=== PATIENT | female | born 1965 | race Caucasian/White ===

== ENCOUNTER 2017-05-25 08:30 | Emergency (ER) | payer OTHER ==
[~2017-05-25] VITALS: Ht 152.4 cm; Wt 70.0 kg
[2017-05-25 08:35] VITALS: BP 173/80; PULSE 87; RESP 16; TEMP 97.8; O2SAT 98
[2017-05-25] MEDS ORDERED: IBUP1TAB7 PO (09:25)
[2017-05-25] MEDS ORDERED: PENI500T PO (09:25)
--- NOTE | 2017-05-25 09:25 | PD ---
HPI Chief Complaint: Facial Pain or Swelling Time Seen by Provider: 09:15 Travel History International Travel<30 days: No Contact w/Intl Traveler<30days: No Traveled to known affect area: No History of Present Illness HPI 52-year-old female here with left upper dental pain for 1 day. Denies fever or chills. Reports a cracked tooth at the site of the pain. No difficulty swelling. Severity moderate. Aggravated by eating and drinking. No alleviating factors. PFSH Past Medical History Medical History: Denies Significant Hx Tetanus Vaccination: < 5 Years Influenza Vaccination: No ?: Not Menopausal: Yes Ovarian Cysts: Yes Past Surgical History Appendectomy: Yes Hysterectomy: Yes (one ovary removed) Social History Alcohol Use: Yes (occas. mix drinks) Tobacco Use: Yes (1 pack every 2 days) Substance Use: No Allergies-Medications (Allergen,Severity, Reaction): Coded Allergies: codeine (Verified Allergy, Intermediate, vomitimg, 05/25/17) Reported Meds & Prescriptions Reported Meds & Active Scripts Active No Active Prescriptions or Reported Medications Review of Systems Except as stated in HPI: all other systems reviewed are Neg General / Constitutional: No: Fever Physical Exam Narrative GENERAL: Alert well-appearing female. SKIN: Warm and dry. HEAD: Normocephalic. EYES: No injection or drainage. MOUTH: Pain and tenderness to the left upper premolar region. Mild gum erythema. Widespread dental decay. No trismus. NECK: Supple, trachea midline. No JVD or lymphadenopathy. MUSCULOSKELETAL: No cyanosis, or edema. BACK: Nontender without obvious deformity. No CVA tenderness. Data Data Last Documented VS Vital Signs Date Time Temp Pulse Resp B/P (MAP) Pulse Ox O2 Delivery O2 Flow Rate FiO2 05/25/17 08:42 87 16 05/25/17 08:35 97.8 173/80 (111) 98 MDM Medical Decision Making Medical Screen Exam Complete: Yes Emergency Medical Condition: Yes Differential Diagnosis Dental infection, dental abscess, dental caries. Narrative Course 52-year-old female here with dental pain. She is well-appearing. Vital signs are stable. Diagnosis Primary Impression: Dentalgia Referrals: Dentist Scripts Ibuprofen (Ibuprofen) 800 Mg Tab 800 MG PO Q6HR Y for PAIN, #30 TAB 0 Refills Prov: Nataliia Cook [employer] 05/25/17 Penicillin V Potassium (Penicillin V Potassium) 500 Mg Tab 500 MG PO Q6H for Infection for 7 Days, #28 TAB 0 Refills Prov: Nataliia Cook 05/25/17 Disposition: 01 DISCHARGE HOME Condition: Stable Nataliia Cook May 25, 2017 09:25
[2017-05-26] MEDS ORDERED: HYDR-3516 PO (19:06)
[2017-05-26] MEDS ORDERED: FAMO1TAB73 PO (19:06)
== END 2017-05-25 09:38 | disposition home or self-care (01) ==
LOC: PHEFT 08:30
DX: K08.89 Other specified disorders of teeth and supporting structures (principal); F17.200 Nicotine dependence, unspecified, uncomplicated; Z88.5 Allergy status to narcotic agent
CPT/HCPCS: 99283

== ENCOUNTER 2017-05-26 17:05 | Emergency (ER) | payer OTHER ==
[~2017-05-26] VITALS: Ht 152.4 cm; Wt 67.8 kg
[~2017-05-26 17:05] MED LIST: IBUP1TAB7 PO; PENI500T PO
[2017-05-26 17:09] VITALS: BP 207/88; PULSE 92; RESP 16; TEMP 99; O2SAT 97
--- NOTE | 2017-05-26 17:23 | PD ---
HPI Chief Complaint: Oral / Dental Pain or Problem Time Seen by Provider: 17:16 Travel History International Travel<30 days: No Contact w/Intl Traveler<30days: No Traveled to known affect area: No History of Present Illness HPI 52-year-old female here for evaluation of dental pain and fever. The patient was seen in the emergency department yesterday and was found to have poor dentition with likely dental infection and was started on Pen-Vee K. She states today her pain and swelling has increased. She is able to swallow and tolerate his secretions. She has noted feeling feverish today. She has been taking ibuprofen, last dose was 2 hours ago. Pain is described as throbbing, 10 out of 10, constant, worse with movement and palpation. Patient also complains of indigestion type feeling in her chest. Discomfort is substernal and she describes as reflux sensation. She smokes cigarettes. She denies history of hypertension or diabetes. No known history of cardiac disease. Sensation is mild to moderate in intensity, intermittent, no modifying factors. PFSH Past Medical History ?: Not Menopausal: Yes Ovarian Cysts: Yes Past Surgical History Appendectomy: Yes Hysterectomy: Yes (one ovary removed) Social History Alcohol Use: Yes (occas. mix drinks) Tobacco Use: Yes (1 pack every 2 days) Substance Use: No Allergies-Medications (Allergen,Severity, Reaction): Coded Allergies: codeine (Verified Allergy, Intermediate, vomitimg, 05/26/17) Reported Meds & Prescriptions Reported Meds & Active Scripts Active Ibuprofen 800 Mg Tab 800 Mg PO Q6HR PRN Penicillin V Potassium 500 Mg Tab 500 Mg PO Q6H 7 Days Review of Systems Except as stated in HPI: all other systems reviewed are Neg Physical Exam Narrative GENERAL: Well-developed, well-nourished, comfortable, no apparent distress. SKIN: Focused skin assessment warm/dry. HEAD: Moderate left cheek swelling without fluctuance or induration. Normocephalic. EYES: Pupils equal and round. No scleral icterus. No injection or drainage. ENT: Mucous membranes pink and moist. Poor dentition with several dental caries with tenderness to the left upper molars, several missing teeth. No trismus. No drooling or stridor. Normal phonation. NECK: Trachea midline. No JVD. No sublingual, submental, submandibular, or neck swelling, induration, or fluctuance. CARDIOVASCULAR: Regular rate and rhythm. RESPIRATORY: No accessory muscle use. Clear to auscultation. Breath sounds equal bilaterally. GASTROINTESTINAL: Abdomen soft, non-tender, nondistended. MUSCULOSKELETAL: No obvious deformities. No clubbing. No cyanosis. No edema. NEUROLOGICAL: Awake and alert. No obvious cranial nerve deficits. Motor grossly within normal limits. Normal speech. PSYCHIATRIC: Appropriate mood and affect; insight and judgment normal. Data Data Last Documented VS Vital Signs Date Time Temp Pulse Resp B/P (MAP) Pulse Ox O2 Delivery O2 Flow Rate FiO2 05/26/17 18:41 72 16 144/89 (107) 98 Room Air 05/26/17 17:09 99.0 Orders Orders Electrocardiogram (05/26/17 17:20) Basic Metabolic Panel (Bmp) (05/26/17 17:20) Ckmb (Isoenzyme) Profile (05/26/17 17:20) Complete Blood Count With Diff (05/26/17 17:20) Prothrombin Time / Inr (Pt) (05/26/17 17:20) Act Partial Throm Time (Ptt) (05/26/17 17:20) Troponin I (05/26/17 17:20) Chest, Single Ap (05/26/17 17:20) Ecg Monitoring (05/26/17 17:20) Iv Access Insert/Monitor (05/26/17 17:20) Oximetry (05/26/17 17:20) Aspirin Chew (Aspirin Chew) (05/26/17 17:30) Sodium Chloride 0.9% Flush (Ns Flush) (05/26/17 17:30) Acetaminophen (Tylenol) (05/26/17 17:30) Lidocaine 1% Inj (50 Ml) (Xylocaine 1% I (05/26/17 17:30) Famotidine Inj (Pepcid Inj) (05/26/17 17:30) Al-Mag Hy-Si 40-40-4 Mg/Ml Liq (Mag-Al P (05/26/17 18:45) Lidocaine 2% Viscous (Xylocaine 2% Visco (05/26/17 18:45) Hepatic Functional Panel (05/26/17 17:40) Lipase (05/26/17 17:40) Labs Laboratory Tests Test 05/26/17 17:40 White Blood Count 10.3 TH/MM3 Red Blood Count 4.32 MIL/MM3 Hemoglobin 12.7 GM/DL Hematocrit 39.4 % Mean Corpuscular Volume 91.2 FL Mean Corpuscular Hemoglobin 29.4 PG Mean Corpuscular Hemoglobin Concent 32.2 % Red Cell Distribution Width 13.8 % Platelet Count 298 TH/MM3 Mean Platelet Volume 7.2 FL Neutrophils (%) (Auto) 76.4 % Lymphocytes (%) (Auto) 15.2 % Monocytes (%) (Auto) 7.2 % Eosinophils (%) (Auto) 0.6 % Basophils (%) (Auto) 0.6 % Neutrophils # (Auto) 7.8 TH/MM3 Lymphocytes # (Auto) 1.6 TH/MM3 Monocytes # (Auto) 0.7 TH/MM3 Eosinophils # (Auto) 0.1 TH/MM3 Basophils # (Auto) 0.1 TH/MM3 CBC Comment DIFF FINAL Differential Comment Prothrombin Time 10.1 SEC Prothromb Time International Ratio 1.0 RATIO Activated Partial Thromboplast Time 29.1 SEC Blood Urea Nitrogen 13 MG/DL Creatinine 0.61 MG/DL Random Glucose 100 MG/DL Total Protein 7.5 GM/DL Albumin 3.8 GM/DL Calcium Level 9.0 MG/DL Alkaline Phosphatase 107 U/L Aspartate Amino Transf (AST/SGOT) 17 U/L Alanine Aminotransferase (ALT/SGPT) 25 U/L Total Bilirubin 1.0 MG/DL Direct Bilirubin 0.2 MG/DL Sodium Level 139 MEQ/L Potassium Level 3.6 MEQ/L Chloride Level 106 MEQ/L Carbon Dioxide Level 26.2 MEQ/L Anion Gap 7 MEQ/L Estimat Glomerular Filtration Rate 103 ML/MIN Indirect Bilirubin 0.8 MG/DL Total Creatine Kinase 96 U/L Troponin I LESS THAN 0.02 NG/ML Lipase 96 U/L [facility] Medical Decision Making Medical Screen Exam Complete: Yes Emergency Medical Condition: Yes Medical Record Reviewed: Yes Interpretation(s) EKG: Sinus, rate 77, leftward axis, normal intervals, LVH, no acute ischemic abnormality. Differential Diagnosis Dental infection, dental caries, ACS, pneumothorax, peritonitis, PE, pneumonia, reflux Narrative Course Vital signs show heart rate 72, blood pressure 144/89, pulse ox 98% on room air , oral temp of 99F. CBC: WBC 10.3, hemoglobin 12.7, hematocrit 39.4, platelets 298, neutrophils 76%. CMP is unremarkable. Chest x-ray shows no acute cardio pulmonary disease. The patient was made aware of all findings. States that her dental pain has resolved after left greater palatine nerve block. She is still having some epigastric discomfort which is intermittent and radiates up into her chest and described as indigestion. Patient is likely experiencing reflux/GERD, likely made worse from the NSAIDs that she was started on yesterday. Lipase and LFT will be checked, and the patient will be provided a GI cocktail and reassessed. Lipase is 96. LFTs are within normal range. GI cocktail improved the patient's symptoms. She likely has gastritis. I will start her on Pepcid. I'll also give her hydrocodone for her dental pain. She was advised to follow-up with a primary care physician and a dentist this week. She was informed on when to return to the emergency department. She verbalizes understanding and agreement with plan. Procedures Procedure Narrative Left greater palatine nerve block: 0.5 cc of 1% lidocaine was injected in the area of the left greater palatine nerve. Patient experienced relief of pain. Tolerated well. No complications. Diagnosis Primary Impression: Dental infection Additional Impression: GERD (gastroesophageal reflux disease) Qualified Codes: K21.9 - Gastro-esophageal reflux disease without esophagitis Referrals: [facility] 3 days Dentist 3 days Primary Care Physician 3 days Additional Instructions: Follow-up with a primary care physician this week. Follow-up with a dentist this week. Continue taking penicillin as prescribed. Return to the emergency department for worsening symptoms or any other concerns. Scripts Famotidine (Pepcid) 40 Mg Tab 40 MG PO HS, #30 TAB 0 Refills Prov: Don Escalante MD 05/26/17 Hydrocodone-Acetaminophen (Hydrocodone-Acetaminophen) 5-325 mg Tab 1 TAB PO Q6H Y for PAIN, #12 TAB 0 Refills Prov: Don Escalante MD 05/26/17 Disposition: 01 DISCHARGE HOME Condition: Stable Don Escalante MD May 26, 2017 17:23
[2017-05-26] MEDS ORDERED: FAMOTIDINE 20 MG/2 ML VIAL IV PUSH ONE (17:30)
[2017-05-26] MEDS ORDERED: ACETAMINOPHEN 325 MG TAB PO ONE (17:30)
[2017-05-26] MEDS ORDERED: ASPIRIN 81 MG CHEW TAB PO ONE (17:30)
[2017-05-26] MEDS ORDERED: LIDOCAINE HCL 1% 50 ML VIAL INFIL ONE (17:30)
[2017-05-26] MEDS ORDERED: SODIUM CHLORIDE 0.9% FLUSH 10 ML FLUSH IVF PRN (17:30)
--- NOTE | 2017-05-26 17:37 | RADRPT ---
EXAM DATE/TIME: 05/26/2017 17:26 [place] COMPARISON: No previous studies available for comparison. INDICATIONS : Center chest pain. MEDICAL HISTORY : None. SURGICAL HISTORY : None. ENCOUNTER: Initial ACUITY: 1 day PAIN SCORE: 8/10 LOCATION: Bilateral chest Center FINDINGS: A single view of the chest demonstrates the lungs to be symmetrically aerated without evidence of mas s, infiltrate or effusion. The cardiomediastinal contours are unremarkable. Osseous structures are intact. CONCLUSION: 1. No acute cardiopulmonary disease. Clarence Mccallum MD on May 26, 2017 at 17:35 Board Certified Radiologist. This report was verified electronically.
[2017-05-26 17:49] VITALS: BP 164/94; PULSE 71; RESP 16; O2SAT 98
[2017-05-26 17:50] LABS: AUTOMATED NEUTROPHIL # 7.8 TH/MM3 (1.8-7.7); BASOPHIL # 0.1 TH/MM3 (0-0.2); BASOPHIL % 0.6 % (0.0-2.0); EOSINOPHIL # 0.1 TH/MM3 (0-0.4); EOSINOPHIL % 0.6 % (0.0-4.0); HEMATOCRIT 39.4 % (35.0-46.0); HEMOGLOBIN 12.7 GM/DL (11.6-15.3); LYMPH % 15.2 % (9.0-44.0); LYMPHOCYTE # 1.6 TH/MM3 (1.0-4.8); MEAN CELL VOLUME 91.2 FL (80.0-100.0); MEAN CORPUSCULAR HEMOGLOBIN 29.4 PG (27.0-34.0); MEAN CORPUSCULAR HGB CONC 32.2 % (32.0-36.0); MEAN PLATELET VOLUME 7.2 FL (7.0-11.0); MONO % 7.2 % (0.0-8.0); MONOCYTE # 0.7 TH/MM3 (0-0.9); NEUT % 76.4 % (16.0-70.0); PLATELET COUNT 298 TH/MM3 (150-450); RED BLOOD COUNT 4.32 MIL/MM3 (4.00-5.30); RED CELL DISTRIBUTION WIDTH 13.8 % (11.6-17.2); WHITE BLOOD COUNT 10.3 TH/MM3 (4.0-11.0)
[2017-05-26 18:06] LABS: PROTHROMBIN TIME - PATIENT 10.1 SEC (9.8-11.6)
[2017-05-26 18:23] LABS: CHLORIDE 106 MEQ/L (98-107); SODIUM (NA) 139 MEQ/L (136-145)
[2017-05-26 18:26] LABS: BICARBONATE 26.2 MEQ/L (21.0-32.0); BLOOD UREA NITROGEN 13 MG/DL (7-18); GLUCOSE,RANDOM 100 MG/DL (74-106)
[2017-05-26 18:29] LABS: CREATININE 0.61 MG/DL (0.50-1.00); GLOMERULAR FILTRATION RATE 103 ML/MIN (>89)
[2017-05-26 18:34] LABS: TROPONIN I LESS THAN 0.02 NG/ML (0.02-0.05)
[2017-05-26 18:41] VITALS: BP 144/89; PULSE 72; RESP 16; O2SAT 98
[2017-05-26] MEDS ORDERED: ALUMINUM/MAGNESIUM/SIMETH 30 ML CUP PO ONE (18:45)
[2017-05-26] MEDS ORDERED: LIDOCAINE VISCOUS 2% SOLN 15 ML UDC PO ONE (18:45)
[2017-05-26 18:52] LABS: DIRECT BILIRUBIN ADULT 0.2 MG/DL (0.0-0.2)
[2017-05-26 18:53] LABS: ALBUMIN 3.8 GM/DL (3.4-5.0); LIPASE 96 U/L (73-393)
[2017-05-26 18:55] LABS: INDIRECT BILIRUBIN 0.8 MG/DL (0.0-0.8); TOTAL PROTEIN 7.5 GM/DL (6.4-8.2)
[2017-05-26 18:56] LABS: ALKALINE PHOSPHATASE 107 U/L (45-117); ALT (GPT) 25 U/L (10-53); AST (GOT) 17 U/L (15-37)
[2017-05-26] MEDS ORDERED: FAMO1TAB73 PO (19:06)
[2017-05-26] MEDS ORDERED: HYDR-3516 PO (19:06)
[2017-05-26 19:27] VITALS: BP 157/82
--- NOTE | 2017-05-27 14:03 | EKG ---
Date Performed: 05/26/2017 Time Performed: 17:32:34 PTAGE: 52 years EKG: Sinus rhythm MODERATE VOLTAGE CRITERIA FOR LVH, CONSIDER NORMAL VARIANT BORDERLINE ECG NO PREVIOUS TRACING DOCTOR: Saji Schwartz Interpretating Date/Time 05/27/2017 14:02:22
== END 2017-05-26 19:30 | disposition home or self-care (01) ==
LOC: PHED 17:05
DX: F17.210 Nicotine dependence, cigarettes, uncomplicated (principal); K04.7 Periapical abscess without sinus; R94.31 Abnormal electrocardiogram [ECG] [EKG]; K21.9 Gastro-esophageal reflux disease without esophagitis
CPT/HCPCS: 64400; 71010; 80048; 80076; 82550; 83690; 84484; 85025; 85610; 85730; 93005; 96374